=== PATIENT | male | born 1945 | race Caucasian/White ===

== ENCOUNTER 2016-08-07 07:13 | Day surgery (SDC) | payer MEDICARE ==
[~2016-08-07] VITALS: Ht 157.5 cm; Wt 81.7 kg
[~2016-08-07 07:13] MED LIST: 0.9% Sodium Chloride 1,000 ML IV PRN; AMLO10TA5 PO; ASPI-973 PO; FLAX100038 PO; LISI10TA PO; METF500T4 PO; PANT40TA2 PO; SIMV10TA PO; Sodium Chloride LOK Flush 10 mL Syringe IV PRN; fentaNYL-PF 50 mCg/mL 2 mL Inj IVPUSH PRN
[2016-08-07 07:43] VITALS: BP 142/98; PULSE 77; O2SAT 94
[2016-08-07 08:43] VITALS: BP 105/72; PULSE 59; RESP 14; O2SAT 93
[2016-08-07 08:59] VITALS: BP 104/69; PULSE 58; RESP 14; O2SAT 94
[2016-08-07 09:05] VITALS: BP 105/76; PULSE 60; RESP 14; O2SAT 94
--- NOTE | 2016-08-07 09:39 | ENDO ---
[address] [address] ENDOSCOPY PROCEDURE PATIENT: DANAE JACKSON : 1945 MR#: [id number] ADMIT: 08/07/2016 JOB ID: [id number] PRIMARY PROVIDER: TOR Sanderson PROCEDURE: Colonoscopy with hot and cold snare polypectomy. INDICATIONS: A 71-year-old male with a personal history of colon polyps, returning for surveillance. EQUIPMENT: [employer]-[id number]. SEDATION: 4 mg Versed and 125 mcg fentanyl. COMPLICATIONS: None identified. BOWEL PREPARATION: Fair. PROCEDURE INFORMATION: After the risks and benefits were explained, written and verbal informed consent was obtained. The patient was brought into the endoscopy suite and placed into the left lateral decubitus position. Sedation was achieved using the above-stated medications, with the addition of oxygen via nasal cannula. A digital rectal examination was accomplished. Mild internal external, nonbleeding, nonthrombosed hemorrhoids were noted. The scope was introduced into the rectum and advanced under direct visualization to the level of the cecum, as identified by the appendiceal orifice and ileocecal valve. The scope was slowly withdrawn to carefully examine the mucosa for any defects or lesions. Retroflexed views were accomplished in the rectum. The colon was decompressed, scope removed from the patient who tolerated the procedure well. FINDINGS: Diverticulosis was seen throughout the left colon. There were four small polyps removed with a combination of hot snare x3 and cold snare x1. These were labeled "colon polyps." The largest was perhaps 6 mm in size. Retroflexed views from within the rectum were unremarkable. ENDOSCOPIC DIAGNOSES: 1. Colon polyps. 2. Diverticulosis. 3. Hemorrhoids. RECOMMENDATIONS: 1. Await histopathology. 2. If any adenomatous features are identified, then I would recommend a repeat colonoscopy in three years' time.
--- NOTE | 2016-08-08 11:56 | PATH ---
SURGICAL PATHOLOGY Attending Physician:Jami Maloney CASE STATUS: Signed Out PATIENT NAME: DANAE JACKSON PID: [id number] : 1945 DATE COLLECTED:08/07/2016 17:20 SPECIMEN: Colon, Biopsy CLINICAL HISTORY: A: COLON POLYPS FINAL DIAGNOSIS: 1.COLON POLYPS: TUBULAR ADENOMA, 1. HYPERPLASTIC POLYPS, 3. ICD10 CODE D12.6 K63.5 GROSS DESCRIPTION: The specimen is received in one formalin filled container labeled with the patient's name, sublabeled "colon polyps" and consists of 4 portions of tissue which aggregate to 0.4 x 0.4 x 0.3 CM. The specimen is entirely submitted in one cassette. 08/07/2016 DAC MICRO DESCRIPTION: See diagnosis. ICD-9 CODES: CPT CODES: 1: 60005 Electronically Signed Out Celia Perales MD [facility] Pathology [facility] [address], [place] [address] Technical component performed at [facility], [facility] [address], [address]
== END 2016-08-07 23:59 | disposition home or self-care (01) ==
LOC: END 07:13
PROVIDERS: ATTEND Internal Medicine Gastroenterology
DX: Z12.11 Encounter for screening for malignant neoplasm of colon (principal); D12.4 Benign neoplasm of descending colon; K63.5 Polyp of colon; K57.30 Diverticulosis of large intestine without perforation or abscess without bleeding; K64.8 Other hemorrhoids; Z86.010 Personal history of colon polyps; E11.9 Type 2 diabetes mellitus without complications; Z79.84 Long term (current) use of oral hypoglycemic drugs; I10 Essential (primary) hypertension; K21.9 Gastro-esophageal reflux disease without esophagitis; E78.5 Hyperlipidemia, unspecified; Z79.82 Long term (current) use of aspirin
CPT/HCPCS: 45385; J2250; J7030